=== PATIENT | female | born 1935 ===

== ENCOUNTER 2019-07-24 08:31 | Emergency (ER) | payer OTHER ==
[~2019-07-24] VITALS: Ht 160 cm; Wt 58.1 kg
[2019-07-24] MEDS ORDERED: MICARDIS80 MG (09:03)
[2019-07-24] MEDS ORDERED: ACID REDUCER20 M1 (09:04)
[2019-07-24] MEDS ORDERED: RISPERDAL0.5 MG (09:04)
[2019-07-24] MEDS ORDERED: ARICEPT10 MG (09:04)
[2019-07-24] MEDS ORDERED: KAPVAY0.1 MG (09:04)
[2019-07-24] MEDS ORDERED: BETAXOLOL HCL20 MG (09:05)
[2019-07-24] MEDS ORDERED: CRESTOR20 MG (09:05)
[2019-07-24] MEDS ORDERED: NORVASC5 MG (09:05)
[2019-07-24] MEDS ORDERED: GLIPIZIDE XL5 MG (09:06)
[2019-07-24] MEDS ORDERED: VITAMINA D (09:06)
== END 2019-07-24 13:49 | disposition home or self-care (01) ==
LOC: ER 08:31
DX: B34.9 Viral infection, unspecified (principal)